=== PATIENT | male | born 1990 | race Asian ===

== ENCOUNTER 2018-04-22 16:29 | Inpatient (IN) | payer MEDICAID, OTHER ==
[~2018-04-22] VITALS: Ht 167.6 cm; Wt 54.9 kg
[~2018-04-22 16:29] MED LIST: CITA-106 PO; HYDR-4031 PO
[2018-04-22] MEDS ORDERED: DULO20CA30 PO (17:42)
[2018-04-22 17:58] LABS: BASOPHILS % (AUTO) 0.5 % (0.0-2.0); EOSINOPHILS % (AUTO) 1.1 % (1.0-6.0); HEMOGLOBIN 15.1 g/dL (13.5-17.5); LYMPHOCYTES # (AUTO) 0.8 K/uL (1.0-4.8); LYMPHOCYTES % (AUTO) 9.2 % (22.0-44.0); MEAN CORPUSCULAR HEMOGLOBIN 29.6 pg (26.0-34.0); MEAN CORPUSCULAR HGB CONC 34.3 G/dL (31.0-37.0); MEAN CORPUSCULAR VOLUME 86 fL (80-100); MONOCYTES # (AUTO) 0.7 K/uL (0.1-1.0); MONOCYTES % (AUTO) 7.7 % (2.0-9.0); NEUTROPHILS # (AUTO) 7.1 K/uL (1.8-7.7); NEUTROPHILS % (AUTO) 81.5 % (40.0-70.0); PLATELET COUNT (AUTO) 247 K/uL (150-450); RED BLOOD CELL COUNT(AUTO) 5.09 MIL/uL (4.50-5.90); RED CELL DISTRIBUTION WIDTH 13.3 % (11.5-14.5)
[2018-04-22 18:05] LABS: ANION GAP 7 mmol/L (8-16); CALCIUM, TOTAL 9.1 mg/dL (8.8-10.5); CARBON DIOXIDE 31 mmol/L (22-29); CHLORIDE 102 mmol/L (98-107); CREATININE 1.33 mg/dL (0.60-1.30); GLOMERULAR FILTR. RATE CALC > 60 mL/min (>60); GLUCOSE,RANDOM 97 mg/dL (70-110); POTASSIUM 3.7 mmol/L (3.5-5.1); SODIUM SERUM 140 mmol/L (136-145); UREA NITROGEN, BLOOD 16 mg/dL (7-18)
[2018-04-22 18:11] LABS: ALANINE AMINOTRANSFERASE 20 U/L (12-78); ALBUMIN 4.3 g/dL (3.4-5.0); ALKALINE PHOSPHATASE 65 U/L (46-116); ASPARTATE AMINOTRANSFERASE 21 U/L (15-37); BILIRUBIN,TOTAL 0.8 mg/dL (0.1-1.0); TOTAL PROTEIN, SERUM 8.2 g/dL (6.4-8.2)
[2018-04-22 18:14] LABS: AMPHET/METH SCREEN,URINE NEGATIVE (NEGATIVE); BARBITURATE SCREEN, URINE NEGATIVE (NEGATIVE); BENZODIAZEPINES SCREEN,URINE NEGATIVE (NEGATIVE); CANNABINOID SCREEN,URINE POSITIVE (NEGATIVE); COCAINE SCREEN,URINE NEGATIVE (NEGATIVE); METHADONE SCREEN, URINE NEGATIVE (NEGATIVE); OPIATE SCREEN,URINE NEGATIVE (NEGATIVE)
[2018-04-22 18:16] LABS: PHENCYCLIDINE SCREEN,URINE NEGATIVE (NEGATIVE)
[2018-04-22] MEDS ORDERED: HALOPERIDOL 5 MG TABLET PO PRN (22:15)
[2018-04-22] MEDS: ZOLPIDEM TARTRATE 10 MG TABLET PO PRN (22:42)
[2018-04-22] MEDS: LORazepam 2 MG TABLET PO PRN (22:42)
[2018-04-23] MEDS: LORazepam 2 MG TABLET PO PRN ×2 (10:25→19:49)
[2018-04-23] MEDS ORDERED: MAG HYDROX/AL HYDROX/SIMETH ES 30 ML SUSPENSION UDCUP PO PRN (11:15)
[2018-04-23] MEDS ORDERED: ACETAMINOPHEN 325 MG TABLET PO PRN (11:15)
[2018-04-23] MEDS ORDERED: IBUPROFEN 400 MG TABLET PO PRN (11:15)
[2018-04-23] MEDS ORDERED: PETROLATUM,WHITE 71 GM JELLY TP PRN (11:15)
[2018-04-23] MEDS ORDERED: LOPERAMIDE HCL 2 MG CAPSULE PO PRN (11:15)
[2018-04-23] MEDS ORDERED: ALBUTEROL SULFATE HFA 90 MCG/PUFF 8 GM INHALER IH PRN (11:15)
[2018-04-23] MEDS ORDERED: DOCUSATE SODIUM 100 MG CAPSULE PO PRN (11:15)
[2018-04-23] MEDS ORDERED: CloNIDine HCL 0.1 MG TABLET PO PRN (11:15)
[2018-04-23] MEDS ORDERED: MAGNESIUM HYDROXIDE SUSPENSION 30 ML UDCUP PO PRN (11:15)
[2018-04-23] MEDS ORDERED: ONDANSETRON HCL 4 MG TABLET PO PRN (11:15)
[2018-04-23 16:20] VITALS: BP 105/70
[2018-04-23 19:48] VITALS: BP 110/74
[2018-04-23] MEDS: ZOLPIDEM TARTRATE 10 MG TABLET PO PRN (21:04)
[2018-04-24 01:41] VITALS: BP 102/70
[2018-04-24 08:00] VITALS: BP 108/67
[2018-04-24] MEDS: LORazepam 2 MG TABLET PO PRN ×4 (09:08→22:14)
[2018-04-24] MEDS: NICOTINE 14 MG/24 HOUR PATCH TD SCH (09:08)
[2018-04-24 09:22] LABS: BASOPHILS % (AUTO) 0.5 % (0.0-2.0); EOSINOPHILS % (AUTO) 1.8 % (1.0-6.0); HEMATOCRIT 42.2 % (41-53); HEMOGLOBIN 14.5 g/dL (13.5-17.5); LYMPHOCYTES # (AUTO) 0.9 K/uL (1.0-4.8); LYMPHOCYTES % (AUTO) 9.4 % (22.0-44.0); MEAN CORPUSCULAR HEMOGLOBIN 29.6 pg (26.0-34.0); MEAN CORPUSCULAR HGB CONC 34.3 G/dL (31.0-37.0); MEAN CORPUSCULAR VOLUME 86 fL (80-100); MONOCYTES # (AUTO) 0.6 K/uL (0.1-1.0); MONOCYTES % (AUTO) 6.7 % (2.0-9.0); NEUTROPHILS # (AUTO) 7.6 K/uL (1.8-7.7); NEUTROPHILS % (AUTO) 81.6 % (40.0-70.0); PLATELET COUNT (AUTO) 244 K/uL (150-450); RED BLOOD CELL COUNT(AUTO) 4.89 MIL/uL (4.50-5.90); RED CELL DISTRIBUTION WIDTH 13.2 % (11.5-14.5)
[2018-04-24 10:04] LABS: ALANINE AMINOTRANSFERASE 15 U/L (12-78); ALBUMIN 3.8 g/dL (3.4-5.0); ALKALINE PHOSPHATASE 52 U/L (46-116); ANION GAP 10 mmol/L (8-16); ASPARTATE AMINOTRANSFERASE 16 U/L (15-37); BILIRUBIN,TOTAL 0.8 mg/dL (0.1-1.0); CALCIUM, TOTAL 9.1 mg/dL (8.8-10.5); CARBON DIOXIDE 29 mmol/L (22-29); CHLORIDE 104 mmol/L (98-107); CHOL/HDL RATIO 2.1 (4.2-7.3); CHOLESTEROL 112 mg/dL (131-200); CREATININE 1.04 mg/dL (0.60-1.30); GLOMERULAR FILTR. RATE CALC > 60 mL/min (>60); GLUCOSE,RANDOM 70 mg/dL (70-110); HDL CHOLESTEROL 54 mg/dL (40-60); LDL CHOL (CALC.) 48 mg/dL (0-130); POTASSIUM 3.9 mmol/L (3.5-5.1); SODIUM SERUM 143 mmol/L (136-145); THYROID STIMULATING HORMONE 0.71 uIU/mL (0.36-3.74); TOTAL PROTEIN, SERUM 7.4 g/dL (6.4-8.2); TRIGLYCERIDES 48 mg/dL (15-150); UREA NITROGEN, BLOOD 16 mg/dL (7-18)
[2018-04-24 10:17] LABS: HEMOGLOBIN A1C 5.4 % (4.5-6.2)
[2018-04-24] MEDS: DULoxetine HCL 30 MG CAPSULE PO SCH (11:37)
[2018-04-24 16:41] VITALS: BP 117/65
[2018-04-24] MEDS: ZOLPIDEM TARTRATE 10 MG TABLET PO PRN (20:05)
[2018-04-25 02:21] VITALS: BP 118/82
[2018-04-25] MEDS: LORazepam 2 MG TABLET PO PRN ×3 (04:05→16:27)
[2018-04-25 04:08] VITALS: BP 110/80
[2018-04-25] MEDS: NICOTINE 14 MG/24 HOUR PATCH TD SCH (08:23)
[2018-04-25] MEDS: DULoxetine HCL 30 MG CAPSULE PO SCH (08:23)
[2018-04-25 08:38] VITALS: BP 116/68
[2018-04-25 16:15] VITALS: BP 121/77
[2018-04-25] MEDS: ZOLPIDEM TARTRATE 10 MG TABLET PO PRN (20:06)
[2018-04-26 02:22] VITALS: BP 106/62
[2018-04-26] MEDS: NICOTINE 14 MG/24 HOUR PATCH TD SCH (09:00)
[2018-04-26] MEDS ORDERED: DULoxetine HCL 30 MG CAPSULE PO SCH (09:00)
[2018-04-26 09:01] VITALS: BP 124/65
== END 2018-04-26 12:30 | disposition home or self-care (01) | DRG 754 ==
LOC: EMS 16:30 → B2S 04-23 08:22
PROVIDERS: ADMIT Psychiatry & Neurology Psychiatry; ATTEND Psychiatry & Neurology Psychiatry
DX: F32.9 Major depressive disorder, single episode, unspecified (principal); F41.9 Anxiety disorder, unspecified; K21.9 Gastro-esophageal reflux disease without esophagitis; Z91.5 Personal history of self-harm; Z88.0 Allergy status to penicillin; Z88.2 Allergy status to sulfonamides
CPT/HCPCS: 83036; 84443; 99285; G0480

== ENCOUNTER 2020-05-07 11:07 | Emergency (ER) | payer SELFPAY ==
[~2020-05-07] VITALS: Ht 167.6 cm; Wt 56.8 kg
[~2020-05-07 11:07] MED LIST changes: -CITA-106 PO; +DULO20CA27 PO; -HYDR-4031 PO
[2020-05-07] MEDS ORDERED: FAMO20 PO (11:11)
[2020-05-07] MEDS ORDERED: ACETAMINOPHEN 500 MG TABLET PO ONE (11:45)
[2020-05-07] MEDS ORDERED: BACITRACIN 0.9 GM PACKET OINTMENT TP ONE (11:45)
[2020-05-07] MEDS ORDERED: PERTUSS(ACELL),DIPH,TET VAC/PF 0.5 ML VIAL IM ONE (11:45)
[2020-05-07 13:12] VITALS: BP 116/76
== END 2020-05-07 13:18 | disposition home or self-care (01) ==
LOC: EMS 11:10
DX: S01.01XA Laceration without foreign body of scalp, initial encounter (principal); F32.9 Major depressive disorder, single episode, unspecified; F41.9 Anxiety disorder, unspecified; K21.9 Gastro-esophageal reflux disease without esophagitis; Z88.0 Allergy status to penicillin; Z88.2 Allergy status to sulfonamides; Z79.899 Other long term (current) drug therapy; W01.198A Fall on same level from slipping, tripping and stumbling with subsequent striking against other object, initial encounter; Y93.89 Activity, other specified; Y92.89 Other specified places as the place of occurrence of the external cause; Y99.8 Other external cause status
CPT/HCPCS: 12002; 90471; 90715

== ENCOUNTER 2020-05-21 09:34 | Emergency (ER) | payer SELFPAY ==
[~2020-05-21] VITALS: Ht 167.6 cm; Wt 56.8 kg
[~2020-05-21 09:34] MED LIST changes: +FAMO20 PO
[2020-05-21] MEDS ORDERED: CITA-144 PO (09:40)
[2020-05-21 10:05] VITALS: BP 107/61
== END 2020-05-21 10:37 | disposition home or self-care (01) ==
LOC: EMS 09:41
DX: S01.01XD Laceration without foreign body of scalp, subsequent encounter (principal); F32.9 Major depressive disorder, single episode, unspecified; Z88.0 Allergy status to penicillin; Z88.2 Allergy status to sulfonamides; X58.XXXD Exposure to other specified factors, subsequent encounter
CPT/HCPCS: Z7502

== ENCOUNTER 2021-05-17 00:18 | Emergency (ER) | payer SELFPAY ==
[~2021-05-17] VITALS: Ht 167.6 cm; Wt 59.1 kg
[~2021-05-17 00:18] MED LIST changes: +CITA-144 PO; -DULO20CA27 PO
[2021-05-17 04:00] VITALS: BP 112/68
== END 2021-05-17 04:48 | disposition home or self-care (01) ==
LOC: EMS 00:29
DX: S46.812A Strain of other muscles, fascia and tendons at shoulder and upper arm level, left arm, initial encounter (principal); F41.9 Anxiety disorder, unspecified; F12.90 Cannabis use, unspecified, uncomplicated; F32.9 Major depressive disorder, single episode, unspecified; Z79.899 Other long term (current) drug therapy; X50.9XXA Other and unspecified overexertion or strenuous movements or postures, initial encounter; Y93.89 Activity, other specified; Y92.89 Other specified places as the place of occurrence of the external cause; Y99.8 Other external cause status
CPT/HCPCS: 29240; 99283